=== PATIENT | female | born 1990 | race Caucasian/White ===

== ENCOUNTER 2019-11-03 19:10 | Inpatient (IN) | payer SELFPAY ==
[2019-11-03] MEDS ORDERED: Butorphanol Tartrate 1 MG/ML VIAL SLOW IVP PRN (19:51)
[2019-11-03] MEDS ORDERED: Ondansetron PF 4 MG/2 ML Vial IVP PRN (19:51)
[2019-11-03] MEDS ORDERED: Promethazine HCl 25 MG/ML VIAL IM PRN (19:51)
[2019-11-03] MEDS ORDERED: hydrALAZINE 20 MG/ML VIAL SLOW IVP PRN (19:51)
[2019-11-03] MEDS ORDERED: Bicitra 30 ML UDCUP PO SCH (20:00)
[2019-11-03] MEDS ORDERED: CEFAZOLIN 2 GM in Premix Bag 1 BAG IVPB SCH (20:00)
[2019-11-03 20:14] VITALS: BMI 36.7
--- NOTE | 2019-11-03 20:33 | HP ---
TIME OF EVALUATION: Roughly 1954, it is now 2009. LOCATION: Labor and Delivery, bed 11. This is a patient of Dr. Syed. REASON FOR ADMISSION: PIH with planned tomorrow at 0730. HISTORY OF PRESENT ILLNESS: In brief, this is a 28-year-old female, G3, P2 with 2 previous C-sections with a history of PIH with the first , but not with the second. She now presents with elevated blood pressures over the last several visits in the office and she was sent here after being seen in the office today as she is 38 weeks and 6 days to plan for tomorrow and for blood pressure observation overnight. She denies headaches, contractions, leakage of fluid, and has good movement. She denies any visual changes or right upper quadrant pain. REVIEW OF SYSTEMS: Complete review of systems was checked and is otherwise negative unless specified in the HPI. PAST MEDICAL HISTORY: Negative. ALLERGIES: NONE. SOCIAL HISTORY: Negative. PAST SURGICAL HISTORY: x2, and this is a result of a BTL reversal. PHYSICAL EXAMINATION: GENERAL: Clinically, she is in no acute distress. VITAL SIGNS: Blood pressure is 153/93, pulse is in the 90s and she is afebrile. ABDOMEN: Soft and nontender. Pelvic exam was deferred as there is no labor complaint. On the external monitor, heart tones are in the 130s to 140s with moderate variability and no decelerations. It is reassuring. There are no contractions on tocodynamometer. ASSESSMENT: This is a G3, P2, at 38 weeks and 6 days, here for -induced hypertension (asymptomatic and mild) with a scheduled section tomorrow at [address] Syed is aware and send the patient for admission. PLAN: 1. Monitor blood pressures overnight. 2. CMP ordered in addition to routine labs. 3. Anesthesia to be notified. 4. Plan is for at 0730. 5. N.p.o. after midnight. Job ID: [id number]
[2019-11-03] MEDS: Lactated Ringer's 1,000 ML IV SCH ×2 (21:16→22:26)
[2019-11-03 21:42] LABS: Hemoglobin 13.3 g/dL (12.0-16.0); Mean Corpuscular HGB CONC 34.1 g/dL (32.0-36.0); Mean Corpuscular Hemoglobin 29.4 pg (27.0-31.0); Mean Corpuscular Volume 86.2 fL (78.0-98.0); Platelet Count 193 thou/uL (130-400); RBC Distribution Width 12.2 % (11.5-14.5); Red Blood Cell (RBC) Count 4.54 mill/uL (4.20-5.40); White Blood Cell (WBC) Count 12.3 thou/uL (4.8-10.8)
[2019-11-03 22:00] LABS: ALT (SGPT) 13 U/L (8-55); AST (SGOT) 17 U/L (5-34); Albumin 3.7 g/dL (3.5-5.0); Alkaline Phosphatase 220 U/L (40-110); Anion Gap 17 mmol/L (10-20); BUN (Urea Nitrogen) 4 mg/dL (7.0-18.7); Bilirubin, Total 0.4 mg/dL (0.2-1.2); Calc. Creatinine Clearance 221 mL/min (70-130); Carbon Dioxide 18 mmol/L (22-29); Chloride 105 mmol/L (98-107); Estimated GFR-MDRD Greater than 90; Globulin 2.7 g/dL (2.4-3.5); Glucose 77 mg/dL (70-105); Protein, Total 6.4 g/dL (6.0-8.3); Sodium 136 mmol/L (136-145)
[2019-11-03 22:17] LABS: HBSAg Index 0.17 S/CO (0-0.99); HIV (1/2) Antibody/Antigen Non-Reactive (NonReactive); Hep B Surf Ag Non-Reactive S/CO (NonReactive); Syphilis Antibody Nonreactive (Nonreactive); Syphilis Antibody Index 0.05 S/CO (<1.00 Non-Reactive)
[2019-11-04] MEDS ORDERED: PHENYLEPHRINE-NS 100 MCG/ML 10 ML SYRINGE ONE (07:19)
[2019-11-04] MEDS ORDERED: MORPHINE 5 MG/10 ML PF VIAL ONE (07:19)
[2019-11-04] MEDS ORDERED: Oxytocin 10 UNITS/ML VIAL ONE (07:19)
[2019-11-04] MEDS ORDERED: diphenhydrAMINE 50 MG/ML VIAL IVP PRN (08:36)
[2019-11-04] MEDS ORDERED: Promethazine HCl 25 MG/ML VIAL IM PRN ×2 (08:36→10:05)
[2019-11-04] MEDS ORDERED: Promethazine HCl 25 MG SUPP PR PRN (08:36)
[2019-11-04] MEDS ORDERED: L&D-Morphine 4 MG/ML VIAL SLOW IVP PRN (08:36)
[2019-11-04] MEDS ORDERED: Naloxone HCl 0.4 mg/ml Vial IVP PRN ×2 (08:36)
[2019-11-04] MEDS ORDERED: Ondansetron PF 4 MG/2 ML Vial IVP PRN ×2 (08:36→10:05)
[2019-11-04] MEDS ORDERED: Naloxone HCl 0.4 mg/ml Vial IV PRN (08:36)
[2019-11-04] MEDS ORDERED: Ondansetron HCl/PF 4 MG/2 ML Vial IVP PRN (08:36)
[2019-11-04] MEDS ORDERED: Ketorolac Tromethamine 30 MG/ML VIAL IVP PRN (08:36)
[2019-11-04] MEDS ORDERED: HYDROmorphone 2 MG/ML VIAL SLOW IVP PRN (08:36)
[2019-11-04] MEDS ORDERED: Meperidine HCl/PF 25 MG/ML VIAL SLOW IVP PRN (08:36)
[2019-11-04] MEDS ORDERED: Communication Order-Pharmacy FS SCH (08:45)
[2019-11-04] MEDS ORDERED: Ketorolac Tromethamine 30 MG/ML VIAL IVP SCH (08:45)
--- NOTE | 2019-11-04 08:45 | OP ---
DATE OF PROCEDURE: 11/04/2019 TIME OF SERVICE: 0730 hours. PREOPERATIVE DIAGNOSES: Gestational hypertension, 39 weeks, prior section x2 for repeat section. POSTOPERATIVE DIAGNOSES: Gestational hypertension, 39 weeks, prior section x2 for repeat section. PROCEDURE PERFORMED: Repeat low-transverse section without extension. REPRODUCTION TECHNICIAN: Conchis Sow D.O., PGY-3, [facility]. ANESTHESIA: Subarachnoid block, Arpit Macias MD MEDICATIONS: 2 g Ancef pre-incision, DVT prophylaxis with SCDs. DRAINS: Hicks to gravity. ESTIMATED BLOOD LOSS: 800 mL. COMPLICATIONS: None. OPERATIVE FINDINGS: 1. Vigorous male , cephalic presentation, 7 and 9 Apgars, clear fluid. Weight is pending. nursery. 2. Normal-appearing uterus, tubes, and ovaries bilaterally. 3. Hemostasis, clear urine. COUNTS: Correct at the end of the procedure. DISPOSITION: Recovery room in good condition. DESCRIPTION OF OPERATIVE PROCEDURE: After obtaining appropriate informed consent, the patient was taken to the operating room where subarachnoid block was achieved without difficulty. The patient was prepped and draped in the usual manner for section. Previous Pfannenstiel incision was incised sharply, carried down to the fascia in the midline, extended superiorly and laterally with curved Do scissors. Rectus was dissected off sharply superiorly and inferiorly, divided the midline with significant scarring noted and entry into the peritoneal cavity bluntly without trauma to the underlying viscera. Sukhjinder O retractor was placed inside. Vesicouterine peritoneum incised sharply and dissected off the lower uterine segment. Low transverse hysterotomy incision was made, clear fluid noted. Infant elevated through hysterotomy, delivered and suctioned. Cord clamped, cut, and handed off to the team in attendance. Usual cord blood sample obtained. Placenta was delivered manually. Uterus was left in situ. Hysterotomy noted to be without extension and closed using running locking #1 Monocryl suture in a single layer closure. Suction irrigation was carried out. Gutters were noted to be dry. Hysterotomy was noted to be dry. Sukhjinder O retractor removed. Rectus was inspected and noted to be dry. Fascia reapproximated using 0 PDS suture x2. Subcutaneous tissue irrigated, rendered hemostatic with Bovie cautery, reapproximated using 2-0 plain gut. Skin was reapproximated using a 4-0 Monocryl and Dermabond. The patient was taken to recovery room in good condition. Job ID: [id number]
[2019-11-04] MEDS ORDERED: NS / Oxytocin 40 units/1000ml 1,000 ML ONE (09:59)
[2019-11-04] MEDS ORDERED: diphenhydrAMINE 25 MG CAP PO PRN (10:05)
[2019-11-04] MEDS ORDERED: NS / Oxytocin 40 units/1000ml 1,000 ML IV SCH (10:05)
[2019-11-04] MEDS ORDERED: hydrALAZINE 20 MG/ML VIAL SLOW IVP PRN (10:05)
[2019-11-04] MEDS: Ibuprofen 800 MG TAB PO SCH ×2 (17:16→22:05)
[2019-11-04] MEDS: Oseltamivir 75 MG CAP PO SCH (18:15)
[2019-11-04] MEDS: Lactated Ringer's 1,000 ML IV SCH ×2 (18:17→21:14)
[2019-11-04] MEDS: Simethicone Chewable 80 MG TAB PO PRN (19:57)
[2019-11-04] MEDS ORDERED: Zolpidem Tartrate 5 MG TAB PO PRN (21:00)
[2019-11-04] MEDS ORDERED: Meperidine HCl/PF 25 MG/ML VIAL IM PRN (21:00)
[2019-11-05] MEDS: Lactated Ringer's 1,000 ML IV SCH ×3 (00:57→18:27)
[2019-11-05] MEDS: Simethicone Chewable 80 MG TAB PO PRN ×2 (05:23→21:28)
[2019-11-05] MEDS: Ibuprofen 800 MG TAB PO SCH ×3 (05:24→21:28)
[2019-11-05] MEDS: HYDROcodone/Acetaminophen 5/325 mg Tablet PO PRN ×4 (05:24→21:31)
[2019-11-05 06:38] LABS: Hemoglobin 10.9 g/dL (12.0-16.0); Mean Corpuscular HGB CONC 34.2 g/dL (32.0-36.0); Mean Corpuscular Hemoglobin 29.9 pg (27.0-31.0); Mean Corpuscular Volume 87.4 fL (78.0-98.0); Mean Platelet Volume 8.6 fL (7.4-10.4); Platelet Count 172 thou/uL (130-400); Red Blood Cell (RBC) Count 3.65 mill/uL (4.20-5.40); White Blood Cell (WBC) Count 11.5 thou/uL (4.8-10.8)
--- NOTE | 2019-11-05 07:12 | PRG ---
DATE OF SERVICE: 11/05/2019 TIME OF SERVICE: 0700 hours. SUBJECTIVE: The patient is resting comfortably. She has no complaints. No headaches. Baby is well. OBJECTIVE: VITAL SIGNS: T-max 99.8, temperature 98.7, pulse 99, respirations 16, and blood pressure 124/75. HEENT: Within normal limits. LUNGS: Clear to auscultation bilaterally. HEART: Regular rhythm. ABDOMEN: Soft and nontender. No rebound or guarding. Bowel sounds active x4 quadrants. Incision is intact and dry without bleeding or bruising. Perineum is dry. EXTREMITIES: Without clubbing, cyanosis, or edema. LABORATORY DATA: Hematocrit went from 39% to 32%, normal platelet count. Urine output has been more than adequate with 2400 mL. Of note, the patient's QBL was 426 mL. IMPRESSION: Postoperative day #1, status post repeat section. PLAN: Routine care. Discharged home on 11/06. The patient's [place] and ibuprofen prescriptions have already been sent to [facility] on [address], [place]. Followup at [facility] in 6 weeks. Job ID: [id number]
[2019-11-05] MEDS ORDERED: Adacel (T-DAP) 0.5 ML SYRINGE IM ONE (10:05)
[2019-11-05] MEDS: Oseltamivir 75 MG CAP PO SCH (10:14)
[2019-11-05] MEDS: Prenatal Vitamin 1 TAB PO SCH (10:14)
[2019-11-05] MEDS ORDERED: FLU VACC QS2019-20(6MOS UP)/PF 60 MCG/0.5 ML SYRINGE IM ONE (11:45)
[2019-11-06] MEDS: Lactated Ringer's 1,000 ML IV SCH ×2 (03:36→08:24)
[2019-11-06] MEDS: Ibuprofen 800 MG TAB PO SCH (04:21)
[2019-11-06] MEDS: HYDROcodone/Acetaminophen 5/325 mg Tablet PO PRN (07:49)
[2019-11-06 08:23] VITALS: BP 137/74; TEMP 98.1
[2019-11-06] MEDS: Prenatal Vitamin 1 TAB PO SCH (09:45)
[2019-11-06] MEDS: Oseltamivir 75 MG CAP PO SCH (09:45)
--- NOTE | 2019-11-07 12:35 | DIS ---
DATE OF ADMISSION: 11/03/2019 DATE OF DISCHARGE: 11/06/2019 ADMITTING DIAGNOSES: 1. -induced hypertension. 2. Previous section x2. 3. Intrauterine at 38 weeks and 6 days. DISCHARGE DIAGNOSES: 1. -induced hypertension. 2. Previous section x2. 3. Intrauterine at 38 weeks and 6 days. HOSPITAL COURSE: The patient is a 28-year-old, G3, P2, female, with a history of 2 previous C-sections, with a history of -induced hypertension, who presented with elevated blood pressures. She was diagnosed with -induced hypertension with this and was scheduled for the following day. For complete details, please refer to the operative note. Her hospital course has been uncomplicated. It is now postoperative day 2 and the patient today reports that she is tolerating p.o., voiding on her own, having decreased lochia and good pain control. She has expressed desire to go home. Vital signs this morning, blood pressure is 130/86, temperature 98.0, pulse of 82, and respiratory rate of 16. Her blood pressures during her complete stay have all been in the normal range with some isolated mild range pressures. DISCHARGE INSTRUCTIONS: The patient will be discharged home with pain medications as sent per Dr. Syed to the pharmacy. She has instructions to refrain from driving for the next 2 weeks, to limit her lifting to 15 pounds for the next 4 to 6 weeks, to follow up with Dr. Syed in 2 weeks for an incision check or sooner if she experiences fever, increasing pain, bleeding, redness or drainage from the incision site. Job ID: [id number]
== END 2019-11-06 12:10 | disposition home or self-care (01) | DRG 788 ==
LOC: L&D 19:10 → 3SW 11-04 11:16
PROVIDERS: ADMIT Obstetrics & Gynecology; ATTEND Obstetrics & Gynecology
PROC: 10D00Z1 Extraction of Products of Conception, Low, Open Approach (ICD-10-PCS; principal; 2019-11-04)
DX: O13.4 Gestational [pregnancy-induced] hypertension without significant proteinuria, complicating childbirth (principal); O34.211 Maternal care for low transverse scar from previous cesarean delivery; Z3A.38 38 weeks gestation of pregnancy; Z37.0 Single live birth
CPT/HCPCS: 36415; 51702; 80053; 85027; 86780; 86850; 86900; 86901; 87340; 87389; J0690; J1885; J2274; J2590; Q0163

== ENCOUNTER 2019-12-05 13:35 | Outpatient (CLI) | payer OTHER ==
--- NOTE | 2019-12-05 14:43 | ULT ---
ULTRASOUND LEFT BREAST: Date: 12/05/2019 HISTORY: Pain and abscess. COMPARISON: None. FINDINGS: Real-time Prado scale and color evaluation of the left breast was performed. There was marked skin thi ckening and redness. At 1 o'clock, 7.0 cm from the nipple, is a heterogeneous, phlegmonous fluid stephon ection with internal debris suggesting an abscess. This abscess at 1 o'clock, 7.0 cm from the nipple, and 2.0 cm from the nipple was a more ovoid hypoechoic area of phlegmonous soft tissue and periphera l hypovascularity suggesting a second abscess. IMPRESSION: Left breast abscess at 1 o'clock, 7.0 cm from the nipple, and likely a secondary small abscess betwee n the primary breast abscess at the nipple at 1 o'clock and 2.0 cm from the nipple. The patient was c ounseled on the importance of clinical follow-up and to come back in 2 weeks if the area of pain is n ot improved. POS: OFF
== END 2019-12-05 13:36 | disposition home or self-care (01) ==
LOC: BICULT 13:35
PROVIDERS: ATTEND Student in an Organized Health Care Education/Training Program
DX: N61.1 Abscess of the breast and nipple (principal)

== ENCOUNTER 2019-12-06 14:56 | Outpatient (CLI) | payer OTHER ==
[2019-12-06 15:36] LABS: #Eosinphils 0.2 thou/uL (0.0-0.7); #Lymphocytes 1.8 thou/uL (1.20-3.40); #Neutrophils 8.9 thou/uL (1.40-6.50); %Basophils 0.4 % (0.0-1.0); %Eosinophils 1.5 % (0.0-10.0); %Lymphocytes 15.2 % (21.0-51.0); %Neutrophils 74.9 % (42.0-75.0); Hemoglobin 11.8 g/dL (12.0-16.0); Mean Corpuscular HGB CONC 34.4 g/dL (32.0-36.0); Mean Corpuscular Hemoglobin 29.7 pg (27.0-31.0); Mean Corpuscular Volume 86.1 fL (78.0-98.0); Mean Platelet Volume 7.6 fL (7.4-10.4); Platelet Count 311 thou/uL (130-400); RBC Distribution Width 11.9 % (11.5-14.5); Red Blood Cell (RBC) Count 3.99 mill/uL (4.20-5.40); White Blood Cell (WBC) Count 11.9 thou/uL (4.8-10.8)
[2019-12-06 16:00] LABS: ALT (SGPT) 15 U/L (8-55); AST (SGOT) 14 U/L (5-34); Alkaline Phosphatase 151 U/L (40-110); Anion Gap 14 mmol/L (10-20); BUN (Urea Nitrogen) 12 mg/dL (7.0-18.7); Bilirubin, Total 0.3 mg/dL (0.2-1.2); Calc. Creatinine Clearance 0 mL/min (70-130); Calcium 8.9 mg/dL (7.8-10.44); Carbon Dioxide 26 mmol/L (22-29); Chloride 104 mmol/L (98-107); Estimated GFR-MDRD Greater than 90; Globulin 2.5 g/dL (2.4-3.5); Glucose 103 mg/dL (70-105); Potassium 4.2 mmol/L (3.5-5.1); Protein, Total 6.5 g/dL (6.0-8.3); Sodium 140 mmol/L (136-145)
== END 2019-12-06 14:57 | disposition home or self-care (01) ==
LOC: LABBT 14:56
PROVIDERS: ATTEND Surgery
DX: Z01.812 Encounter for preprocedural laboratory examination (principal); N61.1 Abscess of the breast and nipple
CPT/HCPCS: 80053; 85025

== ENCOUNTER 2019-12-07 08:08 | Day surgery (SDC) | payer OTHER ==
[2019-12-06 15:25] VITALS: BMI 32.5
[2019-12-07] MEDS ORDERED: Lidocaine 1% PF 5 ML VIAL ONE (10:23)
[2019-12-07] MEDS ORDERED: Succinylcholine Chloride 20 MG/ML 10 ml SYRINGE FS ONE (10:23)
[2019-12-07] MEDS ORDERED: Dexamethasone 20 MG/5 ML VIAL ONE (10:23)
[2019-12-07] MEDS ORDERED: Ondansetron PF 4 MG/2 ML Vial ONE (10:23)
[2019-12-07] MEDS ORDERED: PROPOFOL 200 MG/20 ML VIAL ONE (10:23)
[2019-12-07] MEDS ORDERED: Lidocaine 1% w/Epinephrine 1:100K 20 ML VIAL ONE (11:24)
[2019-12-07] MEDS ORDERED: Bupivacaine 0.25% HCL 30 ML VIAL ONE (11:24)
[2019-12-07] MEDS ORDERED: Fentanyl 100 MCG/2 ML VIAL ONE ×2 (11:27→12:36)
--- NOTE | 2019-12-07 16:07 | OP ---
DATE OF PROCEDURE: 12/07/2019 PREOPERATIVE DIAGNOSIS: Left breast abscess. PROCEDURE PERFORMED: Incision and drainage of left breast abscess. INDICATIONS: This is a 29-year-old female, who is currently , has a 10-day history of mastitis that is not responding to antibiotics. A fluctuant mass in the upper outer left breast. FINDINGS: 5 cm abscess cavity. DESCRIPTION OF PROCEDURE: After informed consent was obtained, the patient was taken to the operating room, given general endotracheal anesthesia, placed in supine position. Her left breast was prepped and draped in usual fashion. An elliptical incision was performed, subcu divided sharply to release purulent thick fluid. This was sent for culture and sensitivity. The cavity was digitally dissected to open up loculations. Then, the cavity was pulse irrigated with 3 L of saline. Hemostasis achieved with electrocautery. The cavity was then packed open with Betadine gauze covered by dry gauze and a bandage. The patient tolerated the procedure well, transferred to Recovery in good condition. Sponge and needle count verified correct x2. Job ID: [id number]
== END 2019-12-07 13:55 | disposition home or self-care (01) ==
LOC: SDC 08:08
PROVIDERS: ATTEND Surgery
PROC: 0H9U0ZZ Drainage of Left Breast, Open Approach (ICD-10-PCS; principal; 2019-12-07)
DX: O91.12 Abscess of breast associated with the puerperium (principal); O99.345 Other mental disorders complicating the puerperium; F53.0 Postpartum depression; F41.9 Anxiety disorder, unspecified; Z79.899 Other long term (current) drug therapy
CPT/HCPCS: 87070; 87077; 87186; 87205; J0690; J1100; J2001; J2405; J2704; J3010; S0020

== ENCOUNTER 2020-01-27 13:02 | Outpatient (CLI) | payer OTHER ==
--- NOTE | 2020-01-27 15:09 | ULT ---
ULTRASOUND LEFT BREAST: HISTORY: The patient is currently breast feeding. The patient gives a history of recent abscess which was levar ated surgically by Dr. Holm. A new palpable lump in the left breast is present and this is evaluate d by ultrasound. FINDINGS: There is an oblong-shaped somewhat lobulated mass in the left breast at 12 o'clock corresponding to t he area of palpable concern. There is a cystic component within this mass. Measurements are recorde d at 3.0 x 3.0 x 1.3 cm. IMPRESSION: Relatively circumscribed lobulated partially cystic mass as described above. In a lactating patient, considerations include lactating adenoma and galactocele. Both of these entities can be partially c ystic. This is not tender on ultrasound and, therefore, abscess is felt less likely. Core biopsies of these lesions are contraindicated due to the possibility of a milk fistula. Surgical excision cou ld be considered if clinically indicated. Suggest close clinical followup and followup ultrasound. Both of these entities should resolve with time in the lactating breast. POS: LEESA
== END 2020-01-27 13:03 | disposition home or self-care (01) ==
LOC: BICULT 13:02
PROVIDERS: ATTEND Surgery
DX: N63.20 Unspecified lump in the left breast, unspecified quadrant (principal)